=== PATIENT | male | born 1940 | race Caucasian/White ===

== ENCOUNTER 2022-05-09 13:58 | Inpatient (IN) | payer MEDICARE, OTHER ==
[~2022-05-09] VITALS: Ht 185.4 cm; Wt 113.4 kg
[2022-05-09] MEDS ORDERED: SODIUM CHLORIDE 0.9% 1000ML 1,000 ML IV STA (14:11)
[2022-05-09 15:03] LABS: AMPHETAMINES SCREEN,URINE NEGATIVE (NEGATIVE); BENZODIAZEPINES SCREEN,URINE NEGATIVE (NEGATIVE); PHENCYCLIDINE SCREEN,URINE NEGATIVE (NEGATIVE)
[2022-05-09 15:05] LABS: CLARITY,URINE CLOUDY (CLEAR); COLOR,URINE YELLOW (YELLOW); LEUKOCYTE ESTERASE ,URINE LARGE (NEGATIVE); NITRITE,URINE NEGATIVE (NEGATIVE); PROTEIN,URINE DIPSTICK 2+ (NEGATIVE)
[2022-05-09 15:06] LABS: KETONES,URINE NEGATIVE (NEGATIVE); URINE UROBILINOGEN 1 mg/dL (0.2 - 1)
[2022-05-09 15:26] LABS: BACTERIA,URINE MODERATE /HPF; RBC,URINE 0-5 /HPF (0-5)
[2022-05-09 15:49] LABS: B-TYPE NATRIURETIC PEPTIDE2 36.1 pg/mL (0-100)
[2022-05-09 15:55] LABS: BASOPHILS # (AUTO) 0.1 (0.0-0.1); BASOPHILS % 0.5 % (0.0-1.0); EOSINOPHILS # (AUTO) 0.1 (0.0-0.4); EOSINOPHILS % 1.1 % (0.0-6.0); HEMATOCRIT 41.4 % (38.2-49.6); HEMOGLOBIN 13.1 g/dL (14.0-18.0); LYMPHOCYTES # (AUTO) 1.6 (1.0-3.2); LYMPHOCYTES % 16.5 % (18.0-39.1); MEAN CORPUSCULAR HEMOGLOBIN 29.4 pg (28-32); MEAN CORPUSCULAR HGB CONC 31.6 g/dL (31-35); MONOCYTES # (AUTO) 1.2 (0.2-0.8); MONOCYTES % 12.2 % (4.4-11.3); NEUTROPHILS # (AUTO) 6.6 (2.1-6.9); NEUTROPHILS % 69.1 % (38.7-80.0); PLATELET COUNT 256 x10e3/uL (140-360); RED BLOOD COUNT 4.45 x10e6/uL (4.3-5.7); RED CELL DISTRIBUTION WIDTH 13.3 % (11.7-14.4)
[2022-05-09 16:15] LABS: ALANINE AMINOTRANSFERASE 22 IU/L (0-55); ALBUMIN 3.4 g/dL (3.5-5.0); ALKALINE PHOSPHATASE 75 IU/L (40-150); BLOOD UREA NITROGEN 29 mg/dL (7-26); BUN/CREATININE RATIO 27 (6-25); CALCIUM 8.8 mg/dL (8.4-10.2); CARBON DIOXIDE 20 mmol/L (22-29); CHLORIDE 110 mmol/L (98-107); CREATINE KINASE 331 IU/L (30-200); CREATININE, SERUM 1.07 mg/dL (0.72-1.25); GLUCOSE 126 mg/dL (74-118); LIPASE 9 U/L (8-78); SODIUM 141 mmol/L (136-145)
[2022-05-09 16:16] LABS: INR 0.97; PROTHROMBIN TIME 13.8 seconds (11.9-14.5)
[2022-05-09 16:17] LABS: PARTIAL THROMBOPLASTIN TIME 26.6 seconds (23.8-35.5)
[2022-05-09 16:34] LABS: SALICYLATE < 5.0 mg/dL (0-30)
[2022-05-09] MEDS ORDERED: IOPAMIDOL 370 MG/ML 100 ML INFUS..BTL INJ ONE (16:58)
[2022-05-09] MEDS ORDERED: DEXTROSE 50% SYRINGE 50 ML IV PRN (18:45)
[2022-05-09] MEDS ORDERED: ONDANSETRON HCL INJ 2MG/ML 2ML 2 MG/ML VIAL IV PRN (18:45)
[2022-05-09] MEDS: SODIUM CHLORIDE 0.9% 1000ML 1,000 ML IV SCH (20:02)
[2022-05-09] MEDS: INSULIN LISPRO 100 UNIT/1 ML 3ML VIAL SQ SCH (21:00)
[2022-05-09 23:00] VITALS: BP 127/73
[2022-05-10] VITALS (9 sets, daily range): BP systolic 107–146; BP diastolic 63–83
[2022-05-10] MEDS ORDERED: ALBUTEROL/IPRATROPIUM 3 ML NEB NEB PRN (00:15)
[2022-05-10] MEDS ORDERED: SIMETHICONE 80 MG CHEW PO PRN (00:15)
[2022-05-10] MEDS ORDERED: DEXTROSE 50% SYRINGE 50 ML IV PRN ×2 (00:15→12:15)
[2022-05-10] MEDS ORDERED: DOCUSATE SODIUM 100 MG CAP PO PRN (00:15)
[2022-05-10] MEDS ORDERED: HYDRALAZINE HCL 20 MG/ML VIAL IV PRN (00:15)
[2022-05-10] MEDS ORDERED: BENZONATATE 100 MG CAP PO PRN (00:15)
[2022-05-10] MEDS: SODIUM CHLORIDE 0.9% 1000ML 1,000 ML IV SCH (03:00)
[2022-05-10] MEDS: DIPHENHYDRAMINE HCL 25 MG CAP PO PRN (06:18)
[2022-05-10] MEDS ORDERED: CHOLECALCIFEROL1 GM PO (06:34)
[2022-05-10] MEDS ORDERED: LATANOPROST2.5 ML OP (06:34)
[2022-05-10] MEDS ORDERED: PROSCAR5 MG PO (06:34)
[2022-05-10] MEDS ORDERED: ATORVASTATIN CA20 MG PO (06:34)
[2022-05-10] MEDS ORDERED: FLOMAX0.4 MG PO (06:34)
[2022-05-10] MEDS ORDERED: CYMBALTA30 MG PO (06:34)
[2022-05-10] MEDS ORDERED: B12 ACTIVE1000 MCG PO (06:37)
[2022-05-10] MEDS ORDERED: METFORMIN HCL500 MG PO (06:37)
[2022-05-10] MEDS ORDERED: LASIX20 MG PO (06:37)
[2022-05-10] MEDS ORDERED: DOCUSATE SODIU100 MG PO (06:37)
[2022-05-10] MEDS ORDERED: MELOXICAM7.5 MG PO (06:37)
[2022-05-10] MEDS ORDERED: LISINOPRIL2.5 MG PO (06:37)
[2022-05-10] MEDS ORDERED: ASPIRIN81 MG PO (06:37)
[2022-05-10 06:47] LABS: BASOPHILS % 0.2 % (0.0-1.0); EOSINOPHILS # (AUTO) 0.2 (0.0-0.4); EOSINOPHILS % 1.9 % (0.0-6.0); HEMATOCRIT 36.3 % (38.2-49.6); HEMOGLOBIN 11.7 g/dL (14.0-18.0); LYMPHOCYTES # (AUTO) 1.3 (1.0-3.2); LYMPHOCYTES % 15.5 % (18.0-39.1); MEAN CORPUSCULAR HGB CONC 32.2 g/dL (31-35); MEAN CORPUSCULAR VOLUME 90.1 fL (81-99); MONOCYTES # (AUTO) 0.9 (0.2-0.8); NEUTROPHILS # (AUTO) 5.8 (2.1-6.9); NEUTROPHILS % 70.6 % (38.7-80.0); PLATELET COUNT 235 x10e3/uL (140-360); RED BLOOD COUNT 4.03 x10e6/uL (4.3-5.7); RED CELL DISTRIBUTION WIDTH 13.1 % (11.7-14.4)
[2022-05-10 07:24] LABS: CREATINE KINASE MB 11.4 ng/mL (0-5.0)
[2022-05-10 08:08] LABS: ALBUMIN 3.1 g/dL (3.5-5.0); ALBUMIN/GLOBULIN RATIO 1.1 (0.8-2.0); ANION GAP 14.7 mmol/L (8-16); CREATININE, SERUM 0.95 mg/dL (0.72-1.25); POTASSIUM 3.7 mmol/L (3.5-5.1)
[2022-05-10] MEDS: PANTOPRAZOLE SOD 40 MG TABEC PO SCH (08:46)
[2022-05-10] MEDS: INSULIN LISPRO 100 UNIT/1 ML 3ML VIAL SQ SCH ×4 (08:47→21:00)
[2022-05-10] MEDS ORDERED: LIDOCAINE 4% PATCH TP PRN (09:00)
[2022-05-10] MEDS ORDERED: DEXTROSE 5%/0.9% SOD CHL 1,000 ML IV SCH (12:15)
[2022-05-10] MEDS: DEXTROSE 5%/0.45% SOD CHL 1,000 ML IV SCH ×2 (12:26→23:00)
[2022-05-10] MEDS ORDERED: BEBTELOVIMAB 175 MG INJ IV ONE (13:00)
[2022-05-10] MEDS: ENOXAPARIN SOD INJ 40 MG/0.4 ML SYR SC SCH ×2 (16:37→21:53)
[2022-05-10 17:17] LABS: CREATINE KINASE MB 11.5 ng/mL (0-5.0)
[2022-05-10] MEDS: MELATONIN 5 MG TABLET PO PRN (21:43)
[2022-05-10] MEDS: ACETAMINOPHEN 325 MG TAB PO PRN (21:52)
[2022-05-11 00:21] VITALS: BP 139/74
[2022-05-11] MEDS: DIPHENHYDRAMINE HCL 25 MG CAP PO PRN (02:01)
[2022-05-11 04:00] VITALS: BP 130/76
[2022-05-11 06:10] LABS: BASOPHILS % 0.3 % (0.0-1.0); EOSINOPHILS # (AUTO) 0.1 (0.0-0.4); EOSINOPHILS % 1.6 % (0.0-6.0); HEMATOCRIT 38.7 % (38.2-49.6); LYMPHOCYTES # (AUTO) 1.4 (1.0-3.2); LYMPHOCYTES % 18.1 % (18.0-39.1); MEAN CORPUSCULAR HEMOGLOBIN 29.5 pg (28-32); MEAN CORPUSCULAR HGB CONC 33.6 g/dL (31-35); MEAN CORPUSCULAR VOLUME 87.8 fL (81-99); MONOCYTES # (AUTO) 0.9 (0.2-0.8); MONOCYTES % 11.3 % (4.4-11.3); NEUTROPHILS # (AUTO) 5.2 (2.1-6.9); NEUTROPHILS % 67.9 % (38.7-80.0); PLATELET COUNT 249 x10e3/uL (140-360); RED BLOOD COUNT 4.41 x10e6/uL (4.3-5.7); RED CELL DISTRIBUTION WIDTH 12.7 % (11.7-14.4)
[2022-05-11 06:35] LABS: ANION GAP 14.5 mmol/L (8-16); CALCIUM 8.1 mg/dL (8.4-10.2); CREATININE, SERUM 0.79 mg/dL (0.72-1.25); POTASSIUM 3.5 mmol/L (3.5-5.1)
[2022-05-11 07:46] VITALS: BP 130/76
[2022-05-11] MEDS: PANTOPRAZOLE SOD 40 MG TABEC PO SCH (08:18)
[2022-05-11] MEDS: BALSAM PERU/CASTOR OIL 60 GM OINT...G. TP SCH (08:19)
[2022-05-11] MEDS: INSULIN LISPRO 100 UNIT/1 ML 3ML VIAL SQ SCH ×4 (08:19→21:00)
[2022-05-11] MEDS: DEXTROSE 5%/0.45% SOD CHL 1,000 ML IV SCH ×2 (08:20→19:00)
[2022-05-11 08:30] VITALS: BP 171/78
[2022-05-11] MEDS ORDERED: ONDANSETRON HCL 4 MG ORAL DISINTEGRATING TAB PO PRN (10:00)
[2022-05-11 12:14] VITALS: BP 116/81
[2022-05-11] MEDS: MEGACE 400MG/ 10ML CUP PO SCH (14:00)
[2022-05-11 16:19] VITALS: BP 144/87
[2022-05-11] MEDS: ENOXAPARIN SOD INJ 40 MG/0.4 ML SYR SC SCH (17:22)
[2022-05-11] MEDS: ATORVASTATIN 20 MG TAB PO SCH (20:21)
[2022-05-12] VITALS (8 sets, daily range): BP systolic 107–143; BP diastolic 71–92
[2022-05-12] MEDS: DEXTROSE 5%/0.45% SOD CHL 1,000 ML IV SCH (05:00)
[2022-05-12] MEDS: INSULIN LISPRO 100 UNIT/1 ML 3ML VIAL SQ SCH ×4 (09:55→21:00)
[2022-05-12] MEDS: TAMSULOSIN HCL 0.4 MG CAP PO SCH (09:58)
[2022-05-12] MEDS: DULOXETINE HCL 30 MG DELAYED RELEASE PO SCH (09:58)
[2022-05-12] MEDS: PANTOPRAZOLE SOD 40 MG TABEC PO SCH (09:58)
[2022-05-12] MEDS: LISINOPRIL 2.5 MG TAB PO SCH (09:59)
[2022-05-12] MEDS: FINASTERIDE 5 MG TAB PO SCH (09:59)
[2022-05-12] MEDS: ASPIRIN 81 MG CHEW TAB PO SCH (09:59)
[2022-05-12] MEDS: MEGACE 400MG/ 10ML CUP PO SCH (10:00)
[2022-05-12] MEDS: BALSAM PERU/CASTOR OIL 60 GM OINT...G. TP SCH (10:00)
[2022-05-12] MEDS: ACETAMINOPHEN 325 MG TAB PO PRN (17:01)
[2022-05-12] MEDS: ENOXAPARIN SOD INJ 40 MG/0.4 ML SYR SC SCH (17:02)
[2022-05-12] MEDS: ATORVASTATIN 20 MG TAB PO SCH (21:00)
[2022-05-12] MEDS: MELATONIN 5 MG TABLET PO PRN (21:05)
[2022-05-12] MEDS: TRAMADOL HCL 50 MG TAB PO PRN (23:08)
[2022-05-13 03:29] VITALS: BP 119/75
[2022-05-13] MEDS: TRAMADOL HCL 50 MG TAB PO PRN (04:43)
[2022-05-13 07:59] VITALS: BP 125/88
[2022-05-13 08:00] VITALS: BP 125/88
[2022-05-13] MEDS: PANTOPRAZOLE SOD 40 MG TABEC PO SCH (08:06)
[2022-05-13] MEDS: INSULIN LISPRO 100 UNIT/1 ML 3ML VIAL SQ SCH ×3 (08:08→17:06)
[2022-05-13] MEDS: FINASTERIDE 5 MG TAB PO SCH (09:53)
[2022-05-13] MEDS: LISINOPRIL 2.5 MG TAB PO SCH (09:53)
[2022-05-13] MEDS: DULOXETINE HCL 30 MG DELAYED RELEASE PO SCH (09:53)
[2022-05-13] MEDS: TAMSULOSIN HCL 0.4 MG CAP PO SCH (09:54)
[2022-05-13] MEDS: MEGACE 400MG/ 10ML CUP PO SCH (09:54)
[2022-05-13] MEDS: BALSAM PERU/CASTOR OIL 60 GM OINT...G. TP SCH (09:54)
[2022-05-13] MEDS: ASPIRIN 81 MG CHEW TAB PO SCH (09:54)
[2022-05-13 11:43] VITALS: BP 124/79
[2022-05-13] MEDS ORDERED: rocephin IV (12:16)
[2022-05-13 15:52] VITALS: BP 128/82
[2022-05-13] MEDS: ENOXAPARIN SOD INJ 40 MG/0.4 ML SYR SC SCH (17:06)
== END 2022-05-13 18:15 | DRG 689 ==
LOC: ER 14:12 → INTOOBSV 18:38 → ERHOLD 18:38 → MED/SURG2 23:58 → OBSVTOIN 05-11 13:55
PROVIDERS: ADMIT Internal Medicine; ATTEND Internal Medicine
PROC: 02HV33Z Insertion of Infusion Device into Superior Vena Cava, Percutaneous Approach (ICD-10-PCS; principal; 2022-05-09)
PROC: 3E04329 Introduction of Other Anti-infective into Central Vein, Percutaneous Approach (ICD-10-PCS; 2022-05-09)
PROC: XW0 New Technology, Anatomical Regions, Introduction (ICD-10-PCS; 2022-05-10)
DX: N39.0 Urinary tract infection, site not specified (principal); U07.1 COVID-19; G93.41 Metabolic encephalopathy; J12.82 Pneumonia due to coronavirus disease 2019; R41.82 Altered mental status, unspecified; E78.5 Hyperlipidemia, unspecified; E11.9 Type 2 diabetes mellitus without complications; Z91.81 History of falling; R29.6 Repeated falls; F32.A Depression, unspecified; R53.81 Other malaise; B96.89 Other specified bacterial agents as the cause of diseases classified elsewhere
CPT/HCPCS: 36415; 36569; 70450; 71045; 71260; 74177; 80048; 80053; 80307; 80320; 80329; 81001; 82140; 82550; 82553; 82948; 83690; 83735; 83880; 84484; 85025; 85610; 85730; 87040; 87086; 87186; 93005; 94799; 97139; 99251; 99285; G0378; J0692; J0696; J1650; J2543; J7030; Q9967

== ENCOUNTER 2023-05-13 13:16 | Emergency (ER) | payer MEDICARE ==
[~2023-05-13] VITALS: Ht 185.4 cm; Wt 86.2 kg
[~2023-05-13 13:16] MED LIST: ASPIRIN81 MG PO; ATORVASTATIN CA20 MG PO; B12 ACTIVE1000 MCG PO; CHOLECALCIFEROL1 GM PO; CYMBALTA30 MG PO; DOCUSATE SODIU100 MG PO; FLOMAX0.4 MG PO; LASIX20 MG PO; LATANOPROST2.5 ML OP; LISINOPRIL2.5 MG PO; MELOXICAM7.5 MG PO; METFORMIN HCL500 MG PO; PROSCAR5 MG PO; rocephin IV
[2023-05-13 13:21] VITALS: O2SAT 96
[2023-05-13] MEDS ORDERED: CEFDINIR300 MG PO (13:59)
== END 2023-05-13 15:10 | disposition home or self-care (01) ==
LOC: ER 13:23
DX: Z46.6 Encounter for fitting and adjustment of urinary device (principal); I10 Essential (primary) hypertension; E11.9 Type 2 diabetes mellitus without complications
CPT/HCPCS: 99283